=== PATIENT | male | born 1950 | race Caucasian/White ===

== ENCOUNTER → 2019-10-14 13:07 | Outpatient (BNVA) | payer OTHER, SELFPAY | PROVIDERS: Family Provider Family Medicine; PCP Family Medicine; Visit Provider Otolaryngology | DX: R13.10 Dysphagia, unspecified (principal); R49.0 Dysphonia; R05 Cough | CPT/HCPCS: 31575; 99214 ==

== ENCOUNTER → 2019-10-23 13:46 | Outpatient (BNVA) | payer OTHER, SELFPAY | PROVIDERS: Family Provider Family Medicine; PCP Family Medicine; Visit Provider Specialist | DX: G40.109 Localization-related (focal) (partial) symptomatic epilepsy and epileptic syndromes with simple partial seizures, not intractable, without status epilepticus (principal); G81.11 Spastic hemiplegia affecting right dominant side; Z87.891 Personal history of nicotine dependence | CPT/HCPCS: 95970; 99214 ==

== ENCOUNTER → 2019-10-25 19:15 | Outpatient (BNVA) | payer OTHER, SELFPAY | PROVIDERS: Family Provider Family Medicine; PCP Family Medicine; Visit Provider Nurse Practitioner | DX: S69.91XA Unspecified injury of right wrist, hand and finger(s), initial encounter (principal); W19.XXXA Unspecified fall, initial encounter | CPT/HCPCS: 73130 ==

== ENCOUNTER 2019-11-05 13:17 | Outpatient (CLI) | payer OTHER, SELFPAY ==
--- NOTE | 2019-11-05 13:30 | CT_ITS ---
WS: [id number] CT ANGIOGRAM CEREBRAL ARTERIES HISTORY: AVM TECHNIQUE: Pre and postcontrast imaging through the brain. CT angiogram is performed of the cerebral arteries. During arterial injection imaging is obtained from the skull vertex to the skull base in 1. 25 mm imaging. Coronal and sagittal reformats are submitted. Additional multi planar reformats of the cerebral arteries are submitted, MIP imaging also reviewed. All CT scans at [facility] use at least one of these dose optimization techniques: automated exposure control; mA and/or kV adju stment per patient size (includes targeted exams where dose is matched to clinical indication); or it erative reconstruction. CONTRAST: Omnipaque 350; 95 mL IV. DLP: 393.27 mGycm COMPARISON: MR angiogram 10/21/2015. Intracranial vertebral arteries: Normal with no significant atherosclerosis. Basilar artery: No significant stenosis or occlusion. No aneurysm. Intracranial Internal carotid arteries: Demonstrates no significant stenosis or plaque. Middle cerebral arteries: There is a large AV malformation centered in the LEFT frontoparietal region . This AVM has been previously described. There is a tangle of vessels beginning in the inferior LEFT middle cranial fossa and extending superiorly towards the vertex. There are large draining veins whi ch appear to drain towards the superior sagittal sinus. Additional drain veins along the straight sin us. Multiple arterial feeders from the middle and anterior cerebral circulation. Anterior cerebral arteries and ACOM: Patent with large feeding arteries extending towards the AVM. Posterior cerebral arteries and PCOM's: Normal. LEFT posterior communicating artery is dilated. Small caliber LEFT transverse sinus. Mastoid air cells: Normal. Paranasal sinuses: Normal. Calvarium: Normal. CT/CT angio head 61830 IMPRESSION: 1. Large LEFT frontoparietal AVM does not appear significantly changed since p rior examinations. No acute hemorrhage. 2. Numerous arterial feeders from the anterior middle cerebral arteries and pr obably also the posterior communicating artery on the LEFT.
[2019-11-05 13:57] LABS: Blood Urea Nitrogen 14 mg/dL (8-23); Glomerular Filtration Rate 83.9 mL/min (90-130)
--- NOTE | 2019-11-05 14:00 | CT_ITS ---
WS: [id number] CT HEAD NONCONTRAST HISTORY: AVM TECHNIQUE: Contiguous axial imaging performed through the brain in 2.5 mm imaging. Bone and soft tiss ue windows. All CT scans at [facility] use at least one of these dose optimization techniq ues: automated exposure control; mA and/or kV adjustment per patient size (includes targeted exams wh ere dose is matched to clinical indication); or iterative reconstruction. DLP: 992.04 mGycm COMPARISON: 10/22/2015 MRI and MRA No acute intracranial hemorrhage, midline shift or mass effect. There is a soft tissue mass with increased density and calcification centered in the LEFT frontoparie faraz region. This mass is been previously described and consistent with an AVM. No acute blood product s are identified. Size of the mass is similar to the prior study measuring 0.3 x 4.8 cm. No midline s hift or mass effect. Otherwise mild chronic microvascular ischemic disease. Ventricles: Normal size with no hydrocephalus. No inferior displacement of cerebellar tonsils. Paranasal sinuses: As visualized are clear. Mastoid air cells: Well pneumatized. Calvarium and scalp: Skull is intact with no soft tissue edema or swelling. CT/CT head wo con* [id number] IMPRESSION: 1. Variable density mass with calcifications in the LEFT frontoparietal region corresponds to previously described AVM. No acute blood products or hemorrhage . Similar in appearance as compared to the prior MRI from 2016. 2. Mild cerebral atrophy and chronic ischemic disease otherwise.
[2019-11-05] MEDS: iohexol 350 mg/mL 100 mL Btl IV (14:11)
== END 2019-11-05 13:18 | disposition home or self-care (01) ==
LOC: RADWPI 13:27
PROVIDERS: Radiology Diagnostic Radiology; Family Provider Family Medicine; PCP Family Medicine; Visit Provider Specialist
DX: Q27.30 Arteriovenous malformation, site unspecified (principal); G31.9 Degenerative disease of nervous system, unspecified
CPT/HCPCS: 70450; 70496; 82565; 84520; Q9967

== ENCOUNTER → 2020-04-06 14:37 | Outpatient (BNVA) | payer OTHER, SELFPAY | PROVIDERS: Family Provider Family Medicine; PCP Family Medicine; Visit Provider Specialist | DX: G40.109 Localization-related (focal) (partial) symptomatic epilepsy and epileptic syndromes with simple partial seizures, not intractable, without status epilepticus (principal); R53.1 Weakness | CPT/HCPCS: 99214 ==

== ENCOUNTER → 2020-05-06 12:48 | Outpatient (BNVA) | payer OTHER, SELFPAY | PROVIDERS: Family Provider Family Medicine; PCP Family Medicine; Visit Provider Specialist | DX: G40.109 Localization-related (focal) (partial) symptomatic epilepsy and epileptic syndromes with simple partial seizures, not intractable, without status epilepticus (principal); G56.02 Carpal tunnel syndrome, left upper limb; G62.9 Polyneuropathy, unspecified | CPT/HCPCS: 95913 ==

== ENCOUNTER → 2020-05-11 08:42 | Outpatient (BNVA) | payer OTHER, SELFPAY | PROVIDERS: Family Provider Family Medicine; PCP Family Medicine; Visit Provider Specialist | DX: G40.109 Localization-related (focal) (partial) symptomatic epilepsy and epileptic syndromes with simple partial seizures, not intractable, without status epilepticus (principal) | CPT/HCPCS: 95816 ==

== ENCOUNTER 2020-05-18 14:32 | Outpatient (CLI) | payer OTHER, SELFPAY ==
--- NOTE | 2020-05-18 14:37 | CT_ITS ---
WS: [id number] CT HEAD WITH AND WITHOUT CONTRAST HISTORY: RT SIDE WEAKNESS TECHNIQUE: Noncontrast 2.5 mm axial images obtained from the vertex to the skull base. Additional abrahan ging performed at 2.5 mm axial images status post IV contrast. Bone and soft tissue windows are revie wed. All CT scans at [facility] use at least one of these dose optimization techniques: a utomated exposure control; mA and/or kV adjustment per patient size (includes targeted exams where do se is matched to clinical indication); or iterative reconstruction. CONTRAST: Omnipaque 300; 95 mL IV. DLP: 1984.08 mGycm COMPARISON: 11/05/2019 Mixed density attenuation centered in the LEFT frontoparietal lobes is essentially unchanged. Tubular areas of increased density corresponding to an enlarged vascular malformation. There are numerous ca lcifications associated with the AVM. On the postcontrast images there is a large AVM corresponding t o the area of mixed density. Not significantly changed since prior studies. There are no acute blood products were interval hemorrhage. No midline shift or mass effect. No significant thrombus identified. Dural venous sinuses are normally enhancing. Paranasal sinuses as visualized: Clear. Mastoid air cells: Clear. Calvarium and scalp: Intact. CT/CT head wo/w con [id number] IMPRESSION: Large AVM centered in the LEFT frontoparietal lobes as seen on prior study. No acute hemorrhage or interval hemorrhage. Very similar to prior studies back to 2010.
[2020-05-18 15:00] LABS: Blood Urea Nitrogen 12 mg/dL (8-23); Glomerular Filtration Rate 95.8 mL/min (90-130)
[2020-05-18] MEDS: iohexol 300 mg/mL 100 mL Btl IV (15:13)
== END 2020-05-18 14:33 | disposition home or self-care (01) ==
LOC: RADWPI 14:36
PROVIDERS: Family Provider Family Medicine; PCP Family Medicine; Visit Provider Family Medicine
DX: M62.81 Muscle weakness (generalized) (principal); Q28.2 Arteriovenous malformation of cerebral vessels
CPT/HCPCS: 70470; 82565; 84520; Q9967

== ENCOUNTER → 2020-06-22 13:18 | Outpatient (BNVA) | payer OTHER, SELFPAY | PROVIDERS: Family Provider Family Medicine; PCP Family Medicine; Referring Provider Family Medicine; Visit Provider Orthopaedic Surgery | DX: M25.561 Pain in right knee (principal); M17.11 Unilateral primary osteoarthritis, right knee | CPT/HCPCS: 73560; 73565 ==

== ENCOUNTER → 2020-06-24 15:03 | Outpatient (BNVA) | payer OTHER, SELFPAY | PROVIDERS: Family Provider Family Medicine; PCP Family Medicine; Visit Provider Specialist | DX: G40.109 Localization-related (focal) (partial) symptomatic epilepsy and epileptic syndromes with simple partial seizures, not intractable, without status epilepticus (principal); G81.11 Spastic hemiplegia affecting right dominant side; G24.9 Dystonia, unspecified; Z87.891 Personal history of nicotine dependence | CPT/HCPCS: 99214 ==

== ENCOUNTER → 2020-07-06 12:17 | Outpatient (BNVA) | payer OTHER, SELFPAY | PROVIDERS: PCP Family Medicine; Visit Provider Orthopaedic Surgery | DX: Z11.59 Encounter for screening for other viral diseases (principal) | CPT/HCPCS: 87635 ==

== ENCOUNTER 2020-07-09 07:51 | Day surgery (SDC) | payer OTHER, SELFPAY ==
[2020-07-08 14:08] VITALS: BMI 29.5
[2020-07-09 08:20] VITALS: BP 152/92; PULSE 69; RESP 18; TEMP 36.2; O2SAT 97
[2020-07-09] MEDS: sodium chloride 0.9% 1,000 ML 30 ML IV (08:23)
--- NOTE | 2020-07-09 09:30 | P.ANESASSM_ITS ---
Pre-Anesthetic Assessment Pre-Anesthetic Assessment: Height/Weight: Height 1.8 m Weight 96.162 kg Temp Pulse Resp BP Pulse Ox 97.2 F L 69 18 152/92 97 07/09/20 08:20 07/09/20 08:20 07/09/20 08:20 07/09/20 08:20 07/09/20 08:20 Preop Diagnosis: Foreign body left hand Proposed Procedure: Operation Date: 07/09/20 10:40 Proposed Procedures p Foreign Body Removal Left Hand 55797 M79.643(Left) - Otto Tripp MD Familial anesthetic complications: None Was Beta Navarro taken within 24 h ours: N/A Last intake: Intake Last Liquid Date 07/08/20 Last Liquid Time 21:30 Last Solid Date 07/08/20 Last Solid Time 21:30 Social: Social History: No alcohol and No tobacco Comment: former smoker Exam: Pre-Anes Outpt Exam: alert, oriented x 3, clear to auscultation bilaterally and regular rate & rhythm Airway: Cervical ROM: WNL MP: 3 Dentition: False Pulmonary: Pulmonary: Cough Comments: superior laryngeal nerve paralysis GI: GI: GERD Neuropsych: Neuropsych: CVA and Seizure Comments: L large L AVM s/p stereotactic surgery in [facility], Repeats unchanged on CT head, R hemiparesis vagal nerve stimulator Anesthetic Plan: ASA status: 3 Other: Plan for ricardo block and/or MAC if surgeon ok - otherwise general Risk of > 500 ml blood loss (7ml/kg in children): No Meds/Allergies Current Medications: Current Medications Generic Name Dose Route Start Last Admin Trade Name Freq PRN Reason Stop Dose Admin Sodium Chloride 1,000 mls @ 30 ml s/hr 07/09/20 08:00 07/09/20 08:23 Sodium Chloride 0.9% IV 07/10/20 07:59 30 mls/hr .Q24H PIERRE Administration PFSH Anesthesia PFSH: Family History Other No pertinent family history Denies family history of Diabetes CAD (coronary artery disease) Hypertension Stroke Social History Smoking and tobacco status: former smoker Alcohol intake: current Alcohol type: wine Data Anesthesia Cardiac Studies: No Data to Display
--- NOTE | 2020-07-09 11:16 | W.PM.OPSUD ---
Surgery/Procedure H&P Update DATE OF PROCEDURE: July 09, 2020 DATE H&P PERFORMED: 06/22/20 PREOP DIAGNOSIS: Foreign body left hand PLANNED PROCEDURE: Operation Date: 07/09/20 10:40 Proposed Procedures p Foreign Body Removal Left Hand 53176 M79.643(Left) - Otto Tripp MD
[2020-07-09 12:13] VITALS: BP 161/98; PULSE 73; RESP 18; TEMP 36.1; O2SAT 98
--- NOTE | 2020-07-09 12:19 | PM.OP ---
Operative Report Date of procedure: July 09, 2020 Pre-op Diagnosis: Possible foreign body left hand, your finger left long finger Post-op diagnosis: same Post-op Findings: Left long finger trigger finger, dense scarring palmar fascia Procedure Done: Left long finger trigger finger release Pathology: none sent Surgeon: Otto Tripp Anesthesia: Nerve Block (Oswaldo block) Estimated blood loss (mL): 5 Tourniquet time (min): 20 Complications: None Findings: Patient had dense scar tissue in the palmar fascia,subcutaneous tissues and A1 emily of the left long finger but no foreign body was identified. Procedure: The patient was taken to the operating room and a [place] block was provided. A V shaped incision was made centered over the A1 emily in the area of swelling and maximal tenderness. Dissection was carried down under loupe magnification through the subcutaneous tissues. No foreign body purulence or other focal masses were identified. Dissection was brought down to the A1 emily which was a densely scarred. Utilizing the scalpel blade the central 5 mm were released. Scissors were then used to release approximately 7 mm proximally and 7 mm distally. Tendons were inspected and found to be free of pathology. Again no foreign body was identified. The wound was irrigated with saline. Skin edges were interrupted 3-0 Prolene. Sterile dressings were applied. Patient was taken to recovery room in stable condition.
[2020-07-09 12:35] VITALS: BP 155/82; PULSE 77; RESP 18; TEMP 36.1; O2SAT 99
[2020-07-09 12:41] VITALS: BP 155/82; PULSE 77; RESP 18; O2SAT 99
--- NOTE | 2020-07-09 13:15 | ANE.PACU2 ---
Inpatient post-anesthesia follow up: Airway intact: Yes Vital signs: Temperature 97.0 F Pulse Rate 77 Respiratory Rate 18 Blood Pressure 155/82 Pulse Oximetry 99 Oxygen Delivery Me thod Room Air Oxygen Flow Rate Fraction of Inspir ed Oxygen Hydration adequate: Yes Nausea and vomiting: No Pain level: 1 Mental status: Baseline
== END 2020-07-09 13:15 | disposition home or self-care (01) ==
PROVIDERS: PCP Family Medicine; Visit Provider Orthopaedic Surgery
PROC: (CPT 26055; principal; 2020-07-09 10:40)
DX: M65.332 Trigger finger, left middle finger (principal); K21.9 Gastro-esophageal reflux disease without esophagitis; Z86.73 Personal history of transient ischemic attack (TIA), and cerebral infarction without residual deficits; Z87.891 Personal history of nicotine dependence
CPT/HCPCS: 26055; 12345; J0690; J1580; J2704; J7030

== ENCOUNTER 2020-07-16 13:58 | Outpatient (RCR) | payer OTHER, SELFPAY | END 2020-07-25 23:59 | disposition home or self-care (01) | LOC: SOT 13:58 | PROVIDERS: PCP Family Medicine; Visit Provider Family Medicine | DX: G81.11 Spastic hemiplegia affecting right dominant side (principal) | CPT/HCPCS: 97167 ==

== ENCOUNTER 2020-07-18 18:06 | Emergency (ER) | payer OTHER, MEDICARE, SELFPAY ==
[2020-07-18 18:25] VITALS: BP 163/86; PULSE 80; RESP 18; TEMP 36.7; O2SAT 97; BMI 29.5
--- NOTE | 2020-07-18 19:01 | XRR_ITS ---
PROCEDURE INFORMATION: Exam: XR Left Shoulder Exam date and time: 07/18/2020 7:02 PM Age: 70 years old Clinical indication: Injury or trauma; Fall; Blunt trauma (contusions or hematomas); Shoulder; Left; Additional info: Left shoulder pain TECHNIQUE: Imaging protocol: XR Left shoulder. Views: 2 or more views. COMPARISON: No relevant prior studies available. FINDINGS: Bones/joints: Negative for acute bony abnormality. Soft tissues: Cardiac pacemaker left chest XR/XR shoulder LT min 2V* [id number] IMPRESSION: 1. No acute bone abnormality. 2. Cardiac pacemaker left chest
[2020-07-18] MEDS: HYDROcodone-acetaminophen 5-325 mg Tablet 1 TAB PO (19:19)
--- NOTE | 2020-07-18 19:33 | W.ED.EXTPRO ---
HPI - Extremity Problem General: Chief complaint: Extremity Injury, Upper Stated complaint: fall, injured left shoulder Time Seen by Provider: 07/18/20 18:46 History of Present Illness: HPI Narrative: 70-year-old male patient presents to the emergency department with complaints of left shoulder pain. He reports sustained a fall yesterday, tripped over his shoe and the dog. He reports skinned his right knee but is been able to walk, he reports pain is located in the left shoulder. He states is not able to raise his left arm due to pain. MD Complaint: extremity pain Onset (ago): day(s) (1) Pain Consistency: intermittent Location: left and upper extremity Severity scale (1-10): 5 Quality: aching and dull Radiation: none Relieving factors: immobilization and rest Exacerbating factors: range of motion Associated symptoms: Reports no associated symptoms; Deny chest pain, fever(s) or rash Review of Systems General: Reports: 10 or more systems reviewed and unremarkable except in HPI and below Const: Denies: fever(s), chills or diaphoresis Eyes: Denies: blurry vision or eye redness ENMT: Denies: throat pain, dental pain or disequilibrium Card: Denies: chest pain, palpitations or irregular heart rhythm Resp: Denies: dyspnea, productive cough, non-productive cough or wheezing GI: Denies: abdominal pain, nausea or vomiting : Denies: dysuria Musc: Reports: other (left shoulder pain); Denies: neck pain or back pain Skin/Breast: Denies: rash or pruritus Neuro: Denies: headache(s), weakness in extremities or behavioral changes Psych: Denies: anxiety or depression Goldy/Lymph: Denies: easy bruising PFSH ED PFSH: Family History Other No pertinent family history Denies family history of Diabetes CAD (coronary artery disease) Hypertension Stroke Social History Smoking and tobacco status: former smoker Alcohol intake: current Alcohol type: wine Physical Exam Const: COMMON NORMALS: no acute distress, patient oriented x3, healthy appearing and alert GENERAL APPEARANCE: cooperative, comfortable and well hydrated HENMT: COMMON NORMALS: normocephalic, Normal external nose present and moist oral mucous membranes HEAD & SCALP: normocephalic NOSE: Normal external nose present Eye: COMMON NORMALS: Equal, round and reactive pupils present and EOMs intact bilaterally GENERAL EYE: appearance normal, both eyes and all related structures PUPIL: Yes Equal, round and reactive pupils present Neck/C-Spine: COMMON NORMALS: full ROM and no lymphadenopathy GENERAL: Yes normal visual inspection and Yes trachea midline CERVICAL SPINE: Yes cervical ROM normal, No pain with cervical ROM, No Cervical spine tenderness, No Paracervical muscle tenderness, No Paracervical spasm and No Trapezius muscle tenderness Lymph: LYMPHATIC: no lymphadenopathy noted Chest: COMMONS NORMALS: normal inspection of the chest Resp: COMMON NORMALS: normal respiratory effort and clear to auscultation bilaterally EFFORT & INSPECTION: Yes able to speak in complete sentences AUSCULTATION: clear to auscultation bilaterally Cardio: COMMON NORMALS: regular rhythm, S1 normal heart sound present, S2 normal heart sound present and Peripheral pulses 2+ throughout RHYTHM: regular rhythm HEART SOUNDS: S1 normal heart sound present and S2 normal heart sound present PERIPHERAL PULSES: Peripheral pulses 2+ throughout GI: COMMON NORMALS: Soft to palpation and non-tender INSPECTION: Yes normal to inspection PALPATION: Yes Soft to palpation : COMMON NORMALS: Yes no CVA tenderness BLADDER/KIDNEY EXAM: Yes no CVA tenderness Back/Pelvis: COMMON NORMALS: no CVA tenderness and thoracic and lumbar spine normal to inspection THORACIC SPINE/UPPER BACK: Yes normal to inspection, Yes thoracic ROM normal, No thoracic spinal tenderness and No paraspinal muscle tenderness LUMBAR SPINE/LOWER BACK: Yes normal to inspection, Yes lumbar ROM normal, No lumbar spinal tenderness and No paraspinal muscle tenderness Extremity: COMMON NORMALS: normal to inspection and capillary refill normal GENERAL: Yes normal exam except as noted LEFT UPPER EXTREMITY: Yes shoulder joint (Pain to the AC joint, anterior and posterior. Not able to produce pain to the left humerus or clavicle. Limited range of motion secondary to pain. Left elbow with full range of motion.) Left shoulder joint: Yes neurovascular exam (Distally intact) Neuro: COMMON NORMALS: patient oriented x3 and no focal motor deficits SENSORIUM/ORIENTATION: Yes alert Psych: COMMON NORMALS: mental status grossly normal, Normal thought process present and cooperative ACTIVITY/MOTOR BEHAVIOR: Yes appropriate eye contact THOUGHT PROCESS: Normal thought process present Skin: COMMON NORMALS: no rashes or lesions noted and turgor normal GENERAL SKIN EXAM: no rashes or lesions noted and turgor normal Course Vital Signs: Vital signs: Vital Signs Temperature 98.0 F 07/18/20 18:25 Pulse Rate 80 07/18/20 18:25 Respiratory Rate 18 07/18/20 18:25 Blood Pressure 163/86 07/18/20 18:25 Pulse Oximetry 97 07/18/20 18:25 MDM - Extremity (Nontraumatic) Imaging Data^: Xray Ortho: Radiologist's impression: [address] [address] XRay Report Signed Patient: Zach Fleming Unit #: [id number] : 1950 Age/Sex: 70 / M ADM Date: 07/18/20 Loc: ER Room/Bed: Attending Dr: Ordering Provider/Ordering MD: Luciana Lara Date of Service: 07/18/20 Procedure(s): XR shoulder LT min 2V* [id number] Accession Number(s): [id number] Report Number: [id number] PROCEDURE INFORMATION: Exam: XR Left Shoulder Exam date and time: 07/18/2020 7:02 PM Age: 70 years old Clinical indication: Injury or trauma; Fall; Blunt trauma (contusions or hematomas); Shoulder; Left; Additional info: Left shoulder pain TECHNIQUE: Imaging protocol: XR Left shoulder. Views: 2 or more views. COMPARISON: No relevant prior studies available. FINDINGS: Bones/joints: Negative for acute bony abnormality. Soft tissues: Cardiac pacemaker left chest XR/XR shoulder LT min 2V* [id number] IMPRESSION: 1. No acute bone abnormality. 2. Cardiac pacemaker left chest Dictated By: Jasmeet Martinez Signed By: Jasmeet Martinez Signed Date/Time: 07/18/201925 DD/ 24 Discharge Plan Discharge Patient Disposition: Home Clinical Impression: Fall Qualifiers: Encounter type: initial encounter Qualified Code(s): W19.XXXA - Unspecified fall, initial encounter Contusion of left shoulder Qualifiers: Encounter type: initial encounter Qualified Code(s): S40.012A - Contusion of left shoulder, initial encounter Condition: Stable Prescriptions: No Action lamotrigine 150 mg tablet 150 mg PO BID Qty: 180 RF: 3 chromium picolinate 1,000 mcg tablet 500 mcg PO QDAY RF: 0 pantoprazole 40 mg tablet,delayed release (DR/EC) 40 mg PO QDAY RF: 0 iodine (kelp) Tablet 200 tab PO DAILY RF: 0 inositol 500 mg tablet 500 mg PO QDAY RF: 0 multivitamin [Daily Multi-Vitamin] Tablet 1 tab PO QAM RF: 0 magnesium citrate 100 mg tablet 100 mg PO QDAY RF: 0 pravastatin 80 mg tablet 80 mg PO .at bedtime RF: 0 glutathione 50 mg capsule 500 mg PO .am RF: 0 carbamazepine [Tegretol XR] 200 mg tablet extended release 12 hr 200 mg PO BID Qty: 180 RF: 3 ropinirole 4 mg tablet 4 mg PO QDAY Qty: 30 RF: 5 zinc 50 mg Tablet See Rx Instructions .ROUTE .COMPLEX RF: 0 fenugreek seed extract 500 mg Capsule 2,440 mg PO BID RF: 0 Vitamin D3 50 mcg PO DAILY RF: 0 [place] 5-325 mg tablet 1 tab PO Q4H PRN (Reason: pain) Qty: 20 RF: 0 Discharge Orders: Discharge Order (Routine); Ordered 07/18/20 Ordered By: Luciana Lara Referrals: Jorge Chisholm [Primary Care Provider] - Discharge Diet: Usual diet Discharge Activity: Limit activity as instructed Patient Instructions: Rotator Cuff Injury (ED), Contusion in Adults (ED), Fall Prevention (ED) Activity Restrictions/Additional Instructions: Wear arm sling for 24 hours, take left arm out of the sling every so often a complete small range of motion exercises such as small circles to prevent frozen shoulder Follow-up with your primary care physician next week for evaluation of the left shoulder, MRI may be warranted if rotator cuff injury is present Return to the emergency department if you develop swelling of the left arm, increased pain, shortness of breath or other concerning symptoms. Continue hydrocodone as needed for pain. Discharge Date/Time: 07/18/20 20:11 Coding Level of Care Code ED [employer] for Rosa M Lewis Exam Comprehensive
== END 2020-07-18 20:11 | disposition home or self-care (01) ==
PROVIDERS: Emergency Provider Nurse Practitioner Family; PCP Family Medicine
DX: S40.012A Contusion of left shoulder, initial encounter (principal); Z87.891 Personal history of nicotine dependence; W01.0XXA Fall on same level from slipping, tripping and stumbling without subsequent striking against object, initial encounter
CPT/HCPCS: 12345; 73030; 99281; 99283

== ENCOUNTER 2020-08-03 14:35 | Outpatient (CLI) | payer OTHER, SELFPAY ==
--- NOTE | 2020-08-03 14:42 | MR_ITS ---
WS: [id number] MRI LEFT SHOULDER NONCONTRAST TECHNIQUE: Sagittal T2, coronal T1, T2 and proton density imaging. Axial gradient PDE imaging. CLINICAL INFORMATION: SHOULDER PAIN COMPARISON: None. FINDINGS: Moderate degenerative arthritis at the AC joint with mild downsloping acromion. Slight subacromial sp urring. Acromial subdeltoid effusion. Soft tissue edema overlying the deltoid soft tissues laterally. Edema at the supraspinatus insertion with insertional tear. Irregularity at the humeral head disloca tion suspicious for a tiny avulsion fracture. This is difficult to further evaluate due to edema and could be better assessed with CT. Infraspinatus is intact. Normal teres minor and subscapularis. Normal biceps tendon in the bicipital groove. Glenoid labrum appears grossly normal. Normal intra-articular biceps tendon. MR/MR shoulder LT wo con* [id number] IMPRESSION: 1. Moderate degenerative arthritis AC joint with mild downsloping of the acrom ion. 2. Subacromial and subdeltoid effusion with edema overlying the lateral deltoi d likely due to recent trauma with soft tissue contusion. 3. Irregularity at the supraspinatus insertion with edema and intrasubstance t ear. No tendon retraction. 4. Suspected avulsion fracture at the supraspinatus insertion anterior lateral humeral head with bony irregularity in this area. Recommend further evaluation with CT for better anatomic detail 5. Rotator cuff is otherwise normal. 6. Normal biceps tendon in the bicipital groove. 7. No other significant findings.
== END 2020-08-03 14:36 | disposition home or self-care (01) ==
LOC: RADWPI 14:41
PROVIDERS: PCP Family Medicine; Visit Provider Family Medicine
DX: M25.512 Pain in left shoulder (principal); M19.012 Primary osteoarthritis, left shoulder; M25.412 Effusion, left shoulder; G40.109 Localization-related (focal) (partial) symptomatic epilepsy and epileptic syndromes with simple partial seizures, not intractable, without status epilepticus; Z87.891 Personal history of nicotine dependence
CPT/HCPCS: 73221; 99213

== ENCOUNTER 2020-10-23 10:43 | Outpatient (CLI) | payer OTHER, SELFPAY ==
--- NOTE | 2020-10-23 | CT_ITS ---
WS: [id number] CT LEFT SHOULDER, NONCONTRAST. HISTORY: DEGENERATIVE ARTHRITIS AC JOINT Technique: All CT scans at [facility] use at least one of these dose optimization techniq ues: automated exposure control; mA and/or kV adjustment per patient size (includes targeted exams wh ere dose is matched to clinical indication); or iterative reconstruction. DLP: 772.98 mGycm COMPARISON: 07/18/2020 Mild narrowing and subchondral cystic changes and hypertrophic osteophytes at the AC joint. There is mild encroachment by osteophytes upon the supraspinatus muscle and tendon. There is a small osteophyt e at the bicipital groove which may be interfering with the biceps tendon and subscapularis tendon. T here are additional foci of increased density along the rotator cuff superior to the humeral head whi ch may be calcific tendinitis or small loose body or fragment. Mild narrowing of the glenohumeral anita nt. There is also slight atrophy of the supraspinatus muscle. CT/CT shoulder LT wo con* [id number] IMPRESSION: 1. Mild degenerative changes at the AC joint. Osteophytes encroach upon the rodgers praspinatus muscle and tendon. 2. Calcific or osseous densities within the rotator cuff over the superior hum eral head may be tiny osseous densities or calcific tendinitis. 3. There is an osteophyte at the bicipital groove which is probably encroachin g upon the biceps tendon and subscapularis tendon.
== END 2020-10-23 10:44 | disposition home or self-care (01) ==
LOC: RADWPI 10:45
PROVIDERS: PCP Family Medicine; Visit Provider Family Medicine
DX: M19.012 Primary osteoarthritis, left shoulder (principal); M25.712 Osteophyte, left shoulder
CPT/HCPCS: 73200

== ENCOUNTER → 2020-11-18 13:43 | Outpatient (BNVA) | payer OTHER, SELFPAY | PROVIDERS: PCP Family Medicine; Visit Provider Specialist | DX: G40.109 Localization-related (focal) (partial) symptomatic epilepsy and epileptic syndromes with simple partial seizures, not intractable, without status epilepticus (principal); Z96.89 Presence of other specified functional implants; Z87.891 Personal history of nicotine dependence | CPT/HCPCS: 95970; 99214 ==

== ENCOUNTER 2021-01-08 12:48 | Outpatient (CLI) | payer OTHER, MEDICARE, SELFPAY ==
--- NOTE | 2021-01-08 | FL_ITS ---
WS: [id number] MODIFIED BARIUM SWALLOW HISTORY: Other dysphagia FLUOROSCOPY TIME: 1.1 minutes. Modified barium swallow was performed by the speech pathologist. Fluoroscopy was provided with the pa tient in a lateral projection. Multiple food consistencies were provided. Patient swallowed the barium mixtures without difficulty. There is premature spilling to the level of the vallecula. No aspiration. Minimal episodes of laryngeal penetration noted with thin liquids. Lakeisha coles swallowed the barium tablet without difficulty. FL/FL barium swallow modifd [id number] IMPRESSION: 1. Mild premature spilling of the barium into the vallecula. 2. No aspiration. 3. A few minimal episodes of laryngeal penetration. Please see speech therapist report also for recommendations.
== END 2021-01-08 12:49 | disposition home or self-care (01) ==
PROVIDERS: PCP Family Medicine; Visit Provider Internal Medicine Critical Care Medicine
DX: R13.19 Other dysphagia (principal)
CPT/HCPCS: 74230

== ENCOUNTER → 2021-01-22 15:05 | Outpatient (BNVA) | payer OTHER, MEDICARE, SELFPAY | PROVIDERS: PCP Family Medicine; Visit Provider Surgery | DX: Z01.812 Encounter for preprocedural laboratory examination (principal); Z20.822 Contact with and (suspected) exposure to COVID-19 | CPT/HCPCS: 87635 ==

== ENCOUNTER 2021-01-23 17:37 | Emergency (ER) | payer OTHER, MEDICARE, SELFPAY ==
[2021-01-23 17:40] VITALS: BP 154/79; PULSE 65; RESP 18; TEMP 36.9; O2SAT 96; BMI 30.2
--- NOTE | 2021-01-23 17:58 | ED_ITS ---
Documented by User: Rob Edouard DO 01/29/21 08:30 HPI - Extremity Problem General: Chief complaint: Extremity Injury, Lower Stated complaint: RIGHT KNEE PAIN Time Seen by Provider: 01/23/21 17:57 History of Present Illness: HPI Narrative: 70-year-old male presents to the emergency room with a complaint of right knee pain. He went out to do some chores around his forearms this morning when he went back into the house he sat down when he tried to stand up he felt like his knee could not extend locked out he refers most of the pain to the lateral aspect of the knee he states he has had this before in the past and eventually it will feel like it pops and that he can straighten it out and use it again without any difficulty. He is never had any surgery that knee and there is no recent trauma. MD Complaint: joint pain Onset (ago): hour(s) Pain Consistency: constant Location: left and knee Quality: aching Radiation: none Relieving factors: immobilization Exacerbating factors: range of motion, weight bearing and walking Associated symptoms: Deny arthralgias, chest pain, fever(s), myalgias, rash or short of breath Review of Systems Const: Denies: fever(s) ENMT: Denies: throat pain, ear or mastoid pain, nasal discharge or nasal congestion Card: Denies: chest pain Resp: Denies: dyspnea, productive cough or non-productive cough GI: Denies: abdominal pain, nausea, vomiting, hematemesis, coffee ground emesis, diarrhea, constipation, bloating, hematochezia or melena : Denies: flank pain, dysuria, urinary frequency or urinary urgency Skin/Breast: Denies: rash PFSH ED PFSH: Medical History (Updated 01/27/21 @ 10:04 by Paulino Francis MD) Arteriovenous malformation, brain Chronic back pain greater than 3 months duration Cough syncope Dysarthria Esophageal varices Restless legs Seizures Unsteady gait Family History Other No pertinent family history Denies family history of Diabetes CAD (coronary artery disease) Hypertension Stroke Social History Smoking and tobacco status: former smoker Quit status (tobacco): has quit using tobacco Year quit tobacco: 1996 Former quit date comment: 0.25 PPD x 2 Years Second hand smoke exposure: No Smoking risk assessment/counseling performed?: Yes Alcohol intake: current Alcohol intake frequency: few times a month Alcohol type: wine Counseling given: No Caregiver/support person: Yes Lives independently: Yes Household members: spouse Marital status: service: Yes Current occupational status: disabled Pets and animals: Yes History of recent travel: No Current gender identity: Male Physical Exam Const: COMMON NORMALS: no acute distress GENERAL APPEARANCE: cooperative and comfortable ORIENTATION/CONSCIOUSNESS: Yes awake, Yes oriented to person, Yes oriented to place and Yes oriented to time HENMT: COMMON NORMALS: normocephalic, atraumatic and hearing grossly normal bilaterally HEAD & SCALP: normocephalic and atraumatic Neck/C-Spine: COMMON NORMALS: no JVD Resp: COMMON NORMALS: normal respiratory effort, No retractions, No use of accessory muscles and clear to auscultation bilaterally AUSCULTATION: clear to auscultation bilaterally Cardio: COMMON NORMALS: no JVD, regular rate, regular rhythm and No murmurs present (Cardio) RATE: regular rate RHYTHM: regular rhythm GI: COMMON NORMALS: Soft to palpation and No hepatosplenomegaly present AUSCULTATION: Yes normoactive bowel sounds PALPATION: Yes Soft to palpation, No Tenderness to palpation present (GI), No Guarding due to palpation present (GI) and Yes No hepatosplenomegaly present Extremity: COMMON NORMALS: normal to inspection, capillary refill normal, no clubbing, cyanosis or edema, no calf tenderness and no pedal edema NARRATIVE EXTREMITY EXAM: Swelling and discomfort of the right knee Neuro: SENSORIUM/ORIENTATION: Yes oriented to person, Yes oriented to place and Yes oriented to time Skin: COMMON NORMALS: no rashes or lesions noted GENERAL SKIN EXAM: no rashes or lesions noted Course Vital Signs: Vital signs: Vital Signs Temperature 98.4 F 01/23/21 17:40 Pulse Rate 65 01/23/21 17:40 Respiratory Rate 18 01/23/21 17:40 Blood Pressure 154/79 01/23/21 17:40 Pulse Oximetry 96 01/23/21 17:40 MDM - Extremity (Nontraumatic) MDM Narrative: Medical decision making narrative: Turned over to Dr. Kirkland at change of shift see his notes for final diagnosis and disposition Discharge Plan Discharge Patient Disposition: Home Clinical Impression: Acute internal derangement of knee Qualifiers: Laterality: right Qualified Code(s): M23.91 - Unspecified internal derangement of right knee Condition: Stable Prescriptions: New methylprednisolone [Medrol (Heraclio)] 4 mg tablets,dose pack See Rx Instructions .ROUTE .COMPLEX Qty: 21 RF: 0 No Action lamotrigine 150 mg tablet 150 mg PO BID Qty: 180 RF: 3 budesonide-formoterol [Symbicort] 80-4.5 mcg/actuation HFA aerosol inhaler 2 puff inhalation BID RF: 0 chromium picolinate 1,000 mcg tablet 500 mcg PO QDAY RF: 0 pantoprazole 40 mg tablet,delayed release (DR/EC) 40 mg PO QDAY RF: 0 inositol 500 mg tablet 500 mg PO QDAY RF: 0 multivitamin [Daily Multi-Vitamin] Tablet 1 tab PO QAM RF: 0 pravastatin 80 mg tablet 80 mg PO .at bedtime RF: 0 glutathione 50 mg capsule 500 mg PO .am RF: 0 carbamazepine [Tegretol XR] 200 mg tablet extended release 12 hr 200 mg PO BID Qty: 180 RF: 1 trihexyphenidyl 2 mg tablet 2 mg PO BID Qty: 60 RF: 4 ropinirole 4 mg tablet 4 mg PO QDAY Qty: 30 RF: 3 zinc 50 mg Tablet See Rx Instructions .ROUTE .COMPLEX RF: 0 Vitamin D3 50 mcg PO BID RF: 0 codeine-guaifenesin 10-100 mg/5 mL liquid 5 ml PO Q6H PRN (Reason: Cough) RF: 0 Kelp (iodine) 150 mcg Tablet 200 mcg PO DAILY RF: 0 magnesium citrate 100 mg Tablet 420 mg PO DAILY RF: 0 coenzyme Q10 [Co Q-10] 100 mg Capsule 120 mg PO DAILY RF: 0 red yeast rice 600 mg Tablet 600 mg PO BID RF: 0 krill oil 500 mg Capsule 200 mg PO DAILY RF: 0 Discharge Orders: Discharge ED (Routine); Ordered 01/23/21 Ordered By: Jenaro Kirkland Referrals: Juju Sam MD [Primary Care Provider] - Otto Tripp MD [Physician] - 4-7 days Patient Instructions: Knee Effusion (ED), Opioid Safety Activity Restrictions/Additional Instructions: Medications as directed. Use your knee immobilizer for weightbearing for the next few days. A hinged sports knee brace may be more helpful. Crutches as eveline mittal. Call the orthopedic clinic on Monday for a follow-up appointment. Coding Level of Care Code ED Directional Drill Operator for Chg Fwd Exam Comprehensive Documented by User: Jenaro Kirkland DO 01/23/21 20:10 HPI - Extremity Problem General: Chief complaint: Extremity Injury, Lower Stated complaint: RIGHT KNEE PAIN Time Seen by Provider: 01/23/21 17:57 PFSH ED PFSH: Medical History (Updated 01/27/21 @ 10:04 by Paulino Francis MD) Arteriovenous malformation, brain Chronic back pain greater than 3 months duration Cough syncope Dysarthria Esophageal varices Restless legs Seizures Unsteady gait Family History Other No pertinent family history Denies family history of Diabetes CAD (coronary artery disease) Hypertension Stroke Social History Smoking and tobacco status: former smoker Quit status (tobacco): has quit using tobacco Year quit tobacco: 1996 Former quit date comment: 0.25 PPD x 2 Years Second hand smoke exposure: No Smoking risk assessment/counseling performed?: Yes Alcohol intake: current Alcohol intake frequency: few times a month Alcohol type: wine Counseling given: No Caregiver/support person: Yes Lives independently: Yes Household members: spouse Marital status: service: Yes Current occupational status: disabled Pets and animals: Yes History of recent travel: No Current gender identity: Male Course Vital Signs: Vital signs: Vital Signs Temperature 98.4 F 01/23/21 17:40 Pulse Rate 65 01/23/21 17:40 Respiratory Rate 18 01/23/21 17:40 Blood Pressure 154/79 01/23/21 17:40 Pulse Oximetry 96 01/23/21 17:40 MDM - Extremity (Nontraumatic) MDM Narrative: Medical decision making narrative: 70-year-old gentleman checked out to me at shift change by Dr. Edouard. He had a locked knee. He can straighten and bend now at least to some degree. He does have a knee effusion. CT shows no fracture. There are some calcium in his menisci be prescribed a Medrol Dosepak for the swelling, hydrocodone as needed for pain. He is going in a knee immobilizer for up to 5 days. Crutches or walker to help with weightbearing. Outpatient orthopedic follow-up Discharge Plan Discharge Patient Disposition: Home Clinical Impression: Acute internal derangement of knee Qualifiers: Laterality: right Qualified Code(s): M23.91 - Unspecified internal derangement of right knee Condition: Stable Prescriptions: New methylprednisolone [Medrol (Heraclio)] 4 mg tablets,dose pack See Rx Instructions .ROUTE .COMPLEX Qty: 21 RF: 0 No Action lamotrigine 150 mg tablet 150 mg PO BID Qty: 180 RF: 3 budesonide-formoterol [Symbicort] 80-4.5 mcg/actuation HFA aerosol inhaler 2 puff inhalation BID RF: 0 chromium picolinate 1,000 mcg tablet 500 mcg PO QDAY RF: 0 pantoprazole 40 mg tablet,delayed release (DR/EC) 40 mg PO QDAY RF: 0 inositol 500 mg tablet 500 mg PO QDAY RF: 0 multivitamin [Daily Multi-Vitamin] Tablet 1 tab PO QAM RF: 0 pravastatin 80 mg tablet 80 mg PO .at bedtime RF: 0 glutathione 50 mg capsule 500 mg PO .am RF: 0 carbamazepine [Tegretol XR] 200 mg tablet extended release 12 hr 200 mg PO BID Qty: 180 RF: 1 trihexyphenidyl 2 mg tablet 2 mg PO BID Qty: 60 RF: 4 ropinirole 4 mg tablet 4 mg PO QDAY Qty: 30 RF: 3 zinc 50 mg Tablet See Rx Instructions .ROUTE .COMPLEX RF: 0 Vitamin D3 50 mcg PO BID RF: 0 codeine-guaifenesin 10-100 mg/5 mL liquid 5 ml PO Q6H PRN (Reason: Cough) RF: 0 Kelp (iodine) 150 mcg Tablet 200 mcg PO DAILY RF: 0 magnesium citrate 100 mg Tablet 420 mg PO DAILY RF: 0 coenzyme Q10 [Co Q-10] 100 mg Capsule 120 mg PO DAILY RF: 0 red yeast rice 600 mg Tablet 600 mg PO BID RF: 0 krill oil 500 mg Capsule 200 mg PO DAILY RF: 0 Discharge Orders: Discharge ED (Routine); Ordered 01/23/21 Ordered By: Jenaro Kirkland Referrals: Juju Sam MD [Primary Care Provider] - Otto Tripp MD [Physician] - 4-7 days Patient Instructions: Knee Effusion (ED), Opioid Safety Activity Restrictions/Additional Instructions: Medications as directed. Use your knee immobilizer for weightbearing for the next few days. A hinged sports knee brace may be more helpful. Crutches as needed. Call the orthopedic clinic on Monday for a follow-up appointment. Coding Level of Care Code ED Directional Drill Operator for Chg Fwd Exam Comprehensive
--- NOTE | 2021-01-23 18:07 | CTR_ITS ---
PROCEDURE INFORMATION: Exam: CT Right Lower Extremity Without Contrast, Knee Exam date and time: 01/23/2021 6:28 PM Age: 70 years old Clinical indication: Right; Patient HX: C/O R knee pain w/o injury; Additional info: Pain, non-weight bearing TECHNIQUE: Imaging protocol: CT of the Right lower extremity without contrast was performed. Exam focused on the knee. Radiation optimization: All CT scans at this facility use at least one of these dose optimization techniques: automated exposure control; mA and/or kV adjustment per patient size (includes targeted exams where dose is matched to clinical indication); or iterative reconstruction. COMPARISON: CR XR knees AP WB w RT lmt ORTH 06/22/2020 1:24 PM RADIATION DOSE METRICS: Total DLP (mGy-cm): 179.34 FINDINGS: Bones/joints: Small to moderate knee joint effusion. There are calcifications within posterior and anterior cruciate ligament consistent with chronic injury. There are bilateral meniscal calcifications. Soft tissues: There is edema in the prepatellar soft tissues. CT/CT knee RT wo con* [id number] IMPRESSION: 1. Small to moderate knee joint effusion. 2. There are calcifications within posterior and anterior cruciate ligament consistent with chronic injury. 3. There are bilateral meniscal calcifications. 4. Prepatellar soft tissue edema. Radiation Dose CTDIVOL = (mGy): DLP = 179.34 (mGy-cm)
== END 2021-01-23 20:19 | disposition home or self-care (01) ==
PROVIDERS: Emergency Provider Emergency Medicine; PCP Family Medicine
DX: M23.91 Unspecified internal derangement of right knee (principal); Z87.891 Personal history of nicotine dependence
CPT/HCPCS: 29530; 73700; 99283; E0114

== ENCOUNTER 2021-01-27 08:12 | Day surgery (SDC) | payer OTHER, MEDICARE, SELFPAY ==
[2021-01-25 15:31] VITALS: BMI 29.8
--- NOTE | 2021-01-27 08:35 | ANES.PREANE2 ---
Pre-Anesthetic Assessment Pre-Anesthetic Assessment: Height/Weight: Height 1.8 m Weight 97.069 kg Preop Diagnosis: Chronic cough And aspiration Proposed Procedure: Operation Date: 01/27/21 09:30 Proposed Procedures p EGD 60372 R13.10(Not Applicable) - Paulino Francis MD Was Beta Navarro taken within 24 hours: N/A Was Clonidine taken within 24 hours: N/A Social: Social History: No alcohol and No tobacco Exam: Pre-Anes Outpt Exam: alert, oriented x 3, clear to auscultation bilaterally and regular rate & rhythm Airway: Submandibular: WNL Cervical ROM: WNL MP: 2 Dentition: False Pulmonary: Pulmonary: Cough GI: GI: GERD Neuropsych: Neuropsych: Seizure (Vagal nerve stim.) Anesthetic Plan: ASA status: 3 Anesthesia: MAC Risk of > 500 ml blood loss (7ml/kg in children): No PFSH Anesthesia PFSH: Medical History Arteriovenous malformation, brain Chronic back pain greater than 3 months duration Cough syncope Dysarthria Restless legs Seizures Unsteady gait Family History Other No pertinent family history Denies family history of Diabetes CAD (coronary artery disease) Hypertension Stroke Social History Smoking and tobacco status: former smoker Quit status (tobacco): has quit using tobacco Year quit tobacco: 1996 Former quit date comment: 0.25 PPD x 2 Years Second hand smoke exposure: No Smoking risk assessment/counseling performed?: Yes Alcohol intake: current Alcohol intake frequency: few times a month Alcohol type: wine Counseling given: No Caregiver/support person: Yes Lives independently: Yes Household members: spouse Marital status: service: Yes Current occupational status: disabled Pets and animals: Yes History of recent travel: No Current gender identity: Male Data Anesthesia Cardiac Studies: No Data to Display
--- NOTE | 2021-01-27 09:05 | W.PM.OPSUD ---
Surgery/Procedure H&P Update DATE OF PROCEDURE: January 27, 2021 DATE H&P PERFORMED: 12/30/20 H&P UPDATE INFORMATION: I have reviewed H&P completed within last 30 days, I have examined patient prior to procedure and Changes to prior documentation as noted here CHANGES TO PREVIOUS DOCUMENTATION: MBS; 1. Mild premature spilling of the barium into the vallecula. 2. No aspiration. 3. A few minimal episodes of laryngeal penetration. Please see speech therapist report also for recommendations. PREOP DIAGNOSIS: Chronic cough And aspiration PRIMARY INDICATION FOR PROCEDURE: The same PLANNED PROCEDURE: Operation Date: 01/27/21 09:30 Proposed Procedures p EGD 75757 R13.10(Not Applicable) - Paulino Francis MD
[2021-01-27 09:08] VITALS: BP 153/70; PULSE 63; RESP 16; TEMP 36.5; O2SAT 99
[2021-01-27] MEDS: sodium chloride 0.9% 1,000 ML 30 ML IV (09:27)
[2021-01-27 10:08] VITALS: BP 163/79; PULSE 72; RESP 18; TEMP 36.1; O2SAT 99
[2021-01-27 10:17] VITALS: BP 148/75; PULSE 59; RESP 18; O2SAT 100
--- NOTE | 2021-01-27 15:03 | ANE.PACU2 ---
Inpatient post-anesthesia follow up: Airway intact: Yes Vital signs: Temperature 97 F Pulse Rate 59 Respiratory Rate 18 Blood Pressure 148/75 Pulse Oximetry 100 Oxygen Delivery Me thod Room Air Oxygen Flow Rate Fraction of Inspir ed Oxygen Hydration adequate: Yes Nausea and vomiting: No Pain level: 1 Mental status: Baseline
[2021-01-29 14:38] LABS: H. Pylori / CLO Test Negative
== END 2021-01-27 10:25 | disposition home or self-care (01) ==
PROVIDERS: PCP Family Medicine; Visit Provider Surgery
PROC: 0DJ08ZZ Inspection of Upper Intestinal Tract, Via Natural or Artificial Opening Endoscopic (ICD-10-PCS; CPT 43235; principal; 2021-01-27 09:30)
DX: R05 Cough (principal); R13.10 Dysphagia, unspecified; Z87.891 Personal history of nicotine dependence; K21.9 Gastro-esophageal reflux disease without esophagitis; I83.90 Asymptomatic varicose veins of unspecified lower extremity; K29.70 Gastritis, unspecified, without bleeding
CPT/HCPCS: 43239; 87077; 96360; J2704; J7030

== ENCOUNTER 2021-02-11 19:33 | Emergency (ER) | payer OTHER, MEDICARE, SELFPAY ==
--- NOTE | 2021-02-11 19:45 | XRR_ITS ---
PROCEDURE INFORMATION: Exam: XR Left Ankle Exam date and time: 02/11/2021 7:47 PM Age: 70 years old Clinical indication: Prior surgery; Patient HX: Pain and swelling in left ankle. PT injured his right leg and has been using a walker putting more pressure on left ankle. ; Additional info: Injury TECHNIQUE: Imaging protocol: XR Left ankle. Views: 3 or more views. COMPARISON: No relevant prior studies available. FINDINGS: Bones/joints: Hardware in the distal left fibula transverses an old healed fracture. Curvilinear bandlike regions of sclerosis are present within the distal metaphysis of the tibia. Severe degenerative changes of the left ankle joint. No acute fracture identified. Soft tissues: Mild soft tissue swelling of the ankle. XR/XR ankle LT min 3V* [id number] IMPRESSION: 1. No acute finding. 2. Bandlike regions of sclerosis in the distal left tibia could relate to prior infection or bone infarction.
[2021-02-11 20:21] VITALS: BP 161/81; PULSE 90; RESP 16; TEMP 37.1; O2SAT 97; BMI 30.2
[2021-02-11 20:53] VITALS: BP 158/80; PULSE 92; RESP 17; O2SAT 96
[2021-02-11 20:54] VITALS: PULSE 92
--- NOTE | 2021-02-11 21:05 | USR_ITS ---
PROCEDURE INFORMATION: Exam: US Duplex Left Lower Extremity Veins, Limited Exam date and time: 02/11/2021 9:07 PM Age: 70 years old Clinical indication: Pain; Leg, lower; Left; Prior surgery; Surgery date: 6+ months; Additional info: Pain and swelling in lower leg TECHNIQUE: Imaging protocol: Real-time Duplex ultrasound of the Left Lower Extremity with 2-D hyde scale, color Doppler flow and spectral waveform analysis with image documentation. Limited exam focused on the left lower extremity veins. COMPARISON: No relevant prior studies available. FINDINGS: Left deep veins: Unremarkable. The common femoral, femoral, proximal profunda femoral and popliteal veins are patent without thrombus. Normal Doppler waveforms. Normal compressibility and/or augmentation response. Left superficial veins: Unremarkable. Saphenofemoral junction is patent without thrombus. Soft tissues: Unremarkable. US/CV venous duplex [facility] [id number] IMPRESSION: No evidence of deep vein thrombosis.
--- NOTE | 2021-02-11 21:05 | CTR_ITS ---
PROCEDURE INFORMATION: Exam: CT Right Lower Extremity With Contrast, Knee Exam date and time: 02/11/2021 9:52 PM Age: 70 years old Clinical indication: Right; Patient HX: RT knee pain. Non weight bearing. History of meniscus tear. ; Additional info: Right knee pain. TECHNIQUE: Imaging protocol: CT of the Right lower extremity with intravenous contrast was performed. Exam focused on the knee. Radiation optimization: All CT scans at this facility use at least one of these dose optimization techniques: automated exposure control; mA and/or kV adjustment per patient size (includes targeted exams where dose is matched to clinical indication); or iterative reconstruction. Contrast material: OMNI 300; Contrast volume: 95 ml; Contrast route: INTRAVENOUS (IV); COMPARISON: CT knee RT wo con* [id number] 01/23/2021 6:46 PM RADIATION DOSE METRICS: Total DLP (mGy-cm): 277.16 FINDINGS: Bones/joints: Stable right knee effusion with mild synovial enhancement. No gas bubbles visualized. The bones are intact and in normal alignment. Mild degenerative changes all 3 knee compartments. No fracture identified or bone destruction. Degenerative calcifications in the bilateral menisci. Benign bone island in the distal femur. Calcification of the posterior cruciate ligament. Soft tissues: Mild subcutaneous soft tissue edema in the distal lateral right thigh and pre patellar region. No organized fluid collection. CT/CT knee RT w con [id number] IMPRESSION: 1. Stable right knee effusion. Nonspecific synovial enhancement may be inflammatory or infect. If there is clinical concern for infection, fluid sampling would be suggested. 2. Mild subcutaneous soft tissue edema in the lateral thigh and prepatellar region. 3. Mild degenerative changes with degenerative calcification of the menisci. Radiation Dose CTDIVOL = (mGy): DLP = 277.16 (mGy-cm)
--- NOTE | 2021-02-11 21:06 | ED_ITS ---
HPI - Extremity Problem General: Chief complaint: Extremity Problem,Nontraumatic Stated complaint: LEFT ANKLE INJURY Time Seen by Provider: 02/11/21 20:42 History of Present Illness: HPI Narrative: Patient is a 70-year-old male comes to the ED with left ankle swelling and pain in right knee pain.Patient was seen here in the ED on January 23 diagnosed with a torn right meniscus. Patient currently is seen Dr. Tripp and is in the process of getting a CT of the right knee with contrast [facility]. Due to patient not being able to walk on right knee he was using a walker and putting all his weight on his left leg. He has a prior history of an ankle fracture and he still has a plate with screws in left ankle. He says after a day of using his walker and putting all his weight on his left leg is left ankle started to swell and was painful and red. He denies any chest pain, shortness of breath or hemoptysis. Patient has pain medications that he takes at home and took a dose of his pain medication couple hours prior to arrival. He denies any acute trauma or injury to left ankle. Patient is tired of waiting to get approval for his CT of his right knee and his symptoms are not improving I would like to get a CT of his knee today in the ED. Associated symptoms: Deny chest pain, fever(s) or rash Review of Systems Const: Denies: fever(s), chills or fatigue Eyes: Denies: change in vision or eye discomfort ENMT: Denies: throat pain, odynophagia, nasal discharge or nasal congestion Card: Denies: chest pain, palpitations, edema, swelling of feet/ankles, dyspnea on exertion or orthopnea Resp: Denies: dyspnea, productive cough or non-productive cough GI: Denies: abdominal pain, nausea, vomiting, diarrhea, constipation or hematochezia : Denies: flank pain, difficulty urinating, dysuria or hematuria Musc: Reports: extremity pain (right knee pain and left ankle/lower leg swelling and pain); Denies: neck pain, back pain or extremity swelling Skin/Breast: Denies: rash or new lesions Neuro: Denies: headache(s), numbness in extremities or weakness in extremities [facility] ED PFSH: Medical History Arteriovenous malformation, brain Chronic back pain greater than 3 months duration Cough syncope Dysarthria Esophageal varices Restless legs Seizures Unsteady gait Family History Other No pertinent family history Denies family history of Diabetes CAD (coronary artery disease) Hypertension Stroke Social History Smoking and tobacco status: former smoker Quit status (tobacco): has quit using tobacco Year quit tobacco: 1996 Former quit date comment: 0.25 PPD x 2 Years Second hand smoke exposure: No Smoking risk assessment/counseling performed?: Yes Alcohol intake: current Alcohol intake frequency: few times a month Alcohol type: wine Counseling given: No Caregiver/support person: Yes Lives independently: Yes Household members: spouse Marital status: service: Yes Current occupational status: disabled Pets and animals: Yes History of recent travel: No Current gender identity: Male Physical Exam Const: COMMON NORMALS: patient oriented x3 and alert GENERAL APPEARANCE: cooperative and comfortable HENMT: COMMON NORMALS: normocephalic HEAD & SCALP: normocephalic MOUTH: Normal oral and palatal mucosa present THROAT: posterior oropharynx normal and uvula midline Neck/C-Spine: COMMON NORMALS: supple GENERAL: Yes normal visual inspection Resp: COMMON NORMALS: normal respiratory effort, No retractions, No use of accessory muscles and clear to auscultation bilaterally AUSCULTATION: clear to auscultation bilaterally Cardio: COMMON NORMALS: regular rate, regular rhythm, S1 normal heart sound present, S2 normal heart sound present, No gallops present (Cardio), No clicks present (Cardio), No murmurs present (Cardio) and Peripheral pulses 2+ throughout RATE: regular rate RHYTHM: regular rhythm HEART SOUNDS: S1 normal heart sound present and S2 normal heart sound present PERIPHERAL PULSES: Peripheral pulses 2+ throughout GI: COMMON NORMALS: Normal to inspection, nondistended, normoactive bowel sounds present, Soft to palpation, non-tender and no masses PALPATION: Yes Soft to palpation : COMMON NORMALS: Yes no CVA tenderness BLADDER/KIDNEY EXAM: Yes no CVA tenderness Back/Pelvis: COMMON NORMALS: no CVA tenderness Extremity: NARRATIVE EXTREMITY EXAM: Left lower leg-erythema, warmth and tenderness to palpation of the skin over the medial aspect of ankle. He has some swelling in the left ankle as well. No open wounds or sores seen. He has full range of motion in ankle. Neurovascular intact distally. Findings on left medial ankle suggestive of possible cellulitis. GENERAL: Yes normal exam except as noted RIGHT LOWER EXTREMITY: Yes knee joint Right knee: Yes inspection (Right knee has some edema, but no deformity seen.), Yes palpation (Tenderness to palpation over the medial and lateral aspect of knee.), Yes ROM (Limited due to pain) and Yes neurovascular exam (Intact) Neuro: COMMON NORMALS: patient oriented x3 SENSORIUM/ORIENTATION: Yes alert Skin: NARRATIVE SKIN EXAM: Medial aspect of the left ankle patient has some warmth, erythema and tenderness to the skin. Findings suggestive of possible cellulitis. No open wounds sores or purulent drainage seen. GENERAL SKIN EXAM: dry skin Course Vital Signs: Vital signs: Vital Signs Temperature 98.7 F 02/11/21 20:21 Pulse Rate 88 02/11/21 22:29 Respiratory Rate 18 02/11/21 22:29 Blood Pressure 153/92 02/11/21 22:29 Pulse Oximetry 95 02/11/21 22:29 MDM - Extremity (Nontraumatic) MDM Narrative: Medical decision making narrative: Patient is a 70-year-old male comes to the ED with right knee pain and left ankle pain and swelling. Patient was seen with here in the ED for his right knee pain back on January 23. He was diagnosed with a possible meniscus tear and referred to Dr. Tripp. Patient has already seen Dr. Tripp and is in the process of getting set up for a CT with contrast of right knee. Patient's left ankle started hurting after he used his walker and was weightbearing on it for a day. He denies any acute trauma or injury to cause pain. He does have a past history of a left ankle fracture and has screws and plates still in left ankle. Exam findings of the left ankle remarkable for some erythema, warmth and tenderness of the medial aspect of left ankle. Findings were suggestive of possible developing cellulitis. Patient's right knee. To have some swelling and was tender upon palpation. He is neurovascular intact distally. CBC and CMP were unremarkable. X-ray of left ankle showed no acute fractures or findings and hardware in left ankle still normal and intact. Ultrasound venous duplex of left lower extremity showed no DVTs or blood clots. I talked with Dr. Knight about getting a CT of patient's right knee here in the ED now even though patient is being set up for 1 on an outpatient basis with Dr. Tripp. Since the ED was not busy at the time Dr. Mcconnell improved weight ordering CT of right knee with contrast for patient. CT was done report was pending. Patient was discharged and told to contact Dr. Tripp tomorrow and let him know that right knee CT with contrast has been performed and report available. Patient was discharged home and diagnosed with cellulitis and right knee pain. Patient was given a dose of cephalexin while here in the ED and discharged home with a prescription for cephalexin. Return to ED precautions given. Patient understood agree with plan. Lab Data: Attestation: I reviewed the patient's lab results. Labs: Lab Results 02/11/21 02/11/21 Range/Units 21:20 21:20 WBC 11.3 H (4.0-10.0) 10^3/ uL RBC 4.05 L (4.1-5.3) 10^6/u L Hgb 12.4 (11.7-16.6) g/dL Hct 39.2 L (42.0-52.0) % MCV 96.8 H (80-94) fL MCH 30.6 (28.0-34.0) pg MCHC 31.6 (30.0-36.0) g/dL RDW 12.9 (12.1-15.1) % Plt Count 327 (130-400) 10^3/c mm MPV 8.9 (7.4-10.4) fL Neut % (Auto) 75.2 % Lymph % (Auto) 13.8 % [place] % (Auto) 9.7 % Eos % (Auto) 0.6 % Baso % (Auto) 0.4 % Neut # (Auto) 8.49 H (1.8-7.7) 10^3/u L Lymph # (Auto) 1.6 (0.8-4.8) 10^3/u L [place] # (Auto) 1.1 H (0.2-0.9) 10^3/u L Eos # (Auto) 0.1 (0.0-0.8) 10^3/u L Baso # (Auto) 0.0 (0.0-0.1) 10^3/u L Nucleated RBC % (a uto) 0 % Nucleated RBCs # 0.0 /100WBC Sodium 138 (136-145) mmol/L Potassium 4.4 (3.5-5.1) mmol/L Chloride 99 (98-107) mmol/L Carbon Dioxide 26 (22-29) mmol/L Anion Gap 17.4 (5-19) BUN 18 (8-23) mg/dL Creatinine 0.8 (0.7-1.2) mg/dL GFR Calculation 95.8 (90-130) mL/min Glucose 113 (65-115) mg/dL Calculated Osmolal ity 289 (285-295) mOsm/k g Calcium 9.3 (8.5-10.5) mg/dL Total Bilirubin 0.3 (0.15-1.2) mg/dL AST 18 (0-40) U/L ALT 15 (0-41) U/L Alkaline Phosphata se 136 H (40-130) IU/L Total Protein 8.1 (6.6-8.7) g/dL Albumin 4.0 (3.5-5.2) g/dL Globulin 4.1 (1.3-4.6) g/dL Imaging Data^: Xray Ortho: Attestation: I personally reviewed and interpreted this imaging study as follows: Radiologist's impression: [address] [place] [address] XRay Report Signed Patient: Zach Fleming Unit #: [id number] : 1950 Age/Sex: 70 / M ADM Date: 02/11/21 Loc: ER Room/Bed: Attending Dr: Ordering Provider/Ordering MD: Carter Knight MD Date of Service: 02/11/21 Procedure(s): XR ankle LT min 3V* [id number] Accession Number(s): [id number] Report Number: [id number] PROCEDURE INFORMATION: Exam: XR Left Ankle Exam date and time: 02/11/2021 7:47 PM Age: 70 years old Clinical indication: Prior surgery; Patient HX: Pain and swelling in left ankle. PT injured his right leg and has been using a walker putting more pressure on left ankle. ; Additional info: Injury TECHNIQUE: Imaging protocol: XR Left ankle. Views: 3 or more views. COMPARISON: No relevant prior studies available. FINDINGS: Bones/joints: Hardware in the distal left fibula transverses an old healed fracture. Curvilinear bandlike regions of sclerosis are present within the distal metaphysis of the tibia. Severe degenerative changes of the left ankle joint. No acute fracture identified. Soft tissues: Mild soft tissue swelling of the ankle. XR/XR ankle LT min 3V* [id number] IMPRESSION: 1. No acute finding. 2. Bandlike regions of sclerosis in the distal left tibia could relate to prior infection or bone infarction. Dictated By: Denis Hopson Signed By: Denis Hopson Signed Date/Time: 02/11/212101 DD/ 99 Vascular: Attestation: I personally reviewed and interpreted this imaging study as follows: Radiologist's impression: Ultrasound venous duplex of left lower extremity?prelim report?no DVTs or blood clots seen. Discharge Plan Discharge Patient Disposition: Home Clinical Impression: Cellulitis Qualifiers: Site of cellulitis: extremity Site of cellulitis of extremity: lower extremity Laterality: left Qualified Code(s): L03.116 - Cellulitis of left lower limb Knee pain, right Qualifiers: Chronicity: acute Qualified Code(s): M25.561 - Pain in right knee Condition: Stable Prescriptions: New cephalexin 500 mg capsule 500 mg PO Q6H 7 Days Qty: 28 RF: 0 No Action lamotrigine 150 mg tablet 150 mg PO BID Qty: 180 RF: 3 budesonide-formoterol [Symbicort] 80-4.5 mcg/actuation HFA aerosol inhaler 2 puff inhalation BID RF: 0 chromium picolinate 1,000 mcg tablet 500 mcg PO QDAY RF: 0 pantoprazole 40 mg tablet,delayed release (DR/EC) 40 mg PO QDAY RF: 0 inositol 500 mg tablet 500 mg PO QDAY RF: 0 multivitamin [Daily Multi-Vitamin] Tablet 1 tab PO QAM RF: 0 pravastatin 80 mg tablet 80 mg PO .at bedtime RF: 0 glutathione 50 mg capsule 500 mg PO .am RF: 0 carbamazepine [Tegretol XR] 200 mg tablet extended release 12 hr 200 mg PO BID Qty: 180 RF: 1 trihexyphenidyl 2 mg tablet 2 mg PO BID Qty: 60 RF: 4 ropinirole 4 mg tablet 4 mg PO QDAY Qty: 30 RF: 3 methylprednisolone [Medrol (Heraclio)] 4 mg tablets,dose pack See Rx Instructions .ROUTE .COMPLEX Qty: 21 RF: 0 zinc 50 mg Tablet See Rx Instructions .ROUTE .COMPLEX RF: 0 Vitamin D3 50 mcg PO BID RF: 0 codeine-guaifenesin 10-100 mg/5 mL liquid 5 ml PO Q6H PRN (Reason: Cough) RF: 0 Kelp (iodine) 150 mcg Tablet 200 mcg PO DAILY RF: 0 magnesium citrate 100 mg Tablet 420 mg PO DAILY RF: 0 coenzyme Q10 [Co Q-10] 100 mg Capsule 120 mg PO DAILY RF: 0 red yeast rice 600 mg Tablet 600 mg PO BID RF: 0 krill oil 500 mg Capsule 200 mg PO DAILY RF: 0 Discharge Orders: Discharge ED (Routine); Ordered 02/11/21 Ordered By: Femi Julien Referrals: Juju Sam MD [Primary Care Provider] - Discharge Diet: Regular Discharge Activity: Use walker/crutches as instructed Patient Instructions: Cellulitis (ED), Knee Pain (ED) Activity Restrictions/Additional Instructions: Follow-up with medical provider as directed in 7 to 10 days for reevaluation. Contact Dr. Tripp to let them know that CT of the knee is complete. Take medications as prescribed. Return to the ER or your medical provider if condition worsens. Please read and understand discharge instructions. Thank you for choosing [facility] for your healthcare needs today. Please realize this is an emergency room and that we are providing you with a medical screening exam and this may not be complete and all inclusive of all the testing and or work up that you may need to determine your ailment or severity of your illness. It is very important that you follow up as instructed or that you return to the Emergency Department should you have concerns or if your condition changes or worsens in any way. Coding Level of Care Code ED [employer] Super[employer] for Rosa M Lewis Exam Comprehensive
[2021-02-11 21:27] LABS: Basophils % 0.4 %; Eosinophils # 0.1 10^3/uL (0.0-0.8); Eosinophils % 0.6 %; Hematocrit 39.2 % (42.0-52.0); Hemoglobin 12.4 g/dL (11.7-16.6); Lymphocytes # 1.6 10^3/uL (0.8-4.8); Lymphocytes % 13.8 %; Mean Corpuscular HGB Conc 31.6 g/dL (30.0-36.0); Mean Corpuscular Hemoglobin 30.6 pg (28.0-34.0); Mean Corpuscular Volume 96.8 fL (80-94); Mean Platelet Volume 8.9 fL (7.4-10.4); Monocytes # 1.1 10^3/uL (0.2-0.9); Monocytes % 9.7 %; Neutrophils # 8.49 10^3/uL (1.8-7.7); Neutrophils % 75.2 %; Nucleated Red Blood Cells % 0 %; Platelet Count 327 10^3/cmm (130-400); Red Blood Count 4.05 10^6/uL (4.1-5.3); Red Cell Distribution Width 12.9 % (12.1-15.1); White Blood Count 11.3 10^3/uL (4.0-10.0)
[2021-02-11 21:46] LABS: Alanine Aminotransferase 15 U/L (0-41); Alkaline Phosphatase 136 IU/L (40-130); Anion Gap 17.4 (5-19); Aspartate Amino Transferase 18 U/L (0-40); Blood Urea Nitrogen 18 mg/dL (8-23); Calcium 9.3 mg/dL (8.5-10.5); Carbon Dioxide 26 mmol/L (22-29); Chloride 99 mmol/L (98-107); Globulin 4.1 g/dL (1.3-4.6); Glomerular Filtration Rate 95.8 mL/min (90-130); Glucose 113 mg/dL (65-115); Osmolality Calculated 289 mOsm/kg (285-295); Potassium 4.4 mmol/L (3.5-5.1); Sodium 138 mmol/L (136-145); Total Bilirubin 0.3 mg/dL (0.15-1.2); Total Protein 8.1 g/dL (6.6-8.7)
[2021-02-11] MEDS: iohexol 300 mg/mL 100 mL Btl IV (22:03)
[2021-02-11 22:29] VITALS: BP 153/92; PULSE 88; RESP 18; O2SAT 95
[2021-02-11] MEDS: cephALEXin 500 mg Capsule PO (22:43)
== END 2021-02-11 22:55 | disposition home or self-care (01) ==
PROVIDERS: Emergency Provider Physician Assistant; PCP Family Medicine
DX: L03.116 Cellulitis of left lower limb (principal); M25.561 Pain in right knee; Z87.891 Personal history of nicotine dependence; M79.605 Pain in left leg
CPT/HCPCS: 73610; 73701; 80053; 85025; 93971; 99283; Q9967

== ENCOUNTER 2021-03-04 12:59 | Outpatient (CLI) | payer OTHER, MEDICARE, SELFPAY ==
--- NOTE | 2021-03-04 13:22 | IR_ITS ---
WS: [id number] RIGHT KNEE ARTHROGRAM (FLUOROSCOPY) RIGHT arthrogram was performed in fluoroscopy prior to CT evaluation. HISTORY: M17.10 - Unilateral primary osteoarthritis, unspecified knee COMPARISON: CT 02/11/2021 Procedure, risks and complications were explained to the patient. Complications include but not limit ed to bleeding, infection and contrast reaction. Current medications are reviewed. Skin is cleansed with ChloraPrep. Skin is anesthetized with 1% buffered lidocaine. 22-gauge needle is inserted into the medial patellofemoral joint space. Approximately 40 cc of Omnipaque 300/saline mix ture injected without complication. Patient will proceed to CT evaluation immediately. No complications were encountered. Patient is instructed to watch for post procedure infection or ble eding. Patient is also instructed to contact the radiology department with any concerns. Medial and lateral compartment chondrocalcinosis. IR/[place] [id number] IMPRESSION: Uncomplicated RIGHT knee joint injection prior to CT arthrogram.
--- NOTE | 2021-03-04 14:00 | CT_ITS ---
WS: [id number] CT RIGHT KNEE ARTHROGRAM HISTORY: M17.10 - Unilateral primary osteoarthritis, unspecified knee DLP: 998.[address] scans at [facility] use at least one of these dose optimization techniques: automat ed exposure control; mA and/or kV adjustment per patient size (includes targeted exams where dose is matched to clinical indication); or iterative reconstruction. COMPARISON: 02/11/2021 Intra-articular and extra-articular contrast within the knee. Moderate narrowing of the medial and la teral compartments. There are numerous small calcific densities consistent with chondrocalcinosis whi ch was seen on the prior noncontrast examination of the knee. Patellofemoral joint space. Moderate narrowing of the lateral patellofemoral joint space. Loss of car tilage along the lateral patellar eminence. Lateral compartment. Chondrocalcinosis. Blunting of the free edge of the posterior horn and small deanne unt of contrast entering the posterior meniscus. There is also mild fraying along the anterior surfac e of the anterior horn. Medial compartment. Mild narrowing of the medial compartment. There is chondrocalcinosis. The ACL and PCL appear to be intact. CT/CT knee RT w con [id number] IMPRESSION: 1. Uncomplicated RIGHT knee arthrogram. 2. Multiple small fissures and defects in the posterior horn of the lateral me niscus. There is a horizontal tear with additional surface fraying. 3. Small caliber anterior and posterior horns of the medial meniscus with blun ting of the free edge of the posterior horn suspicious but indeterminate for ho rizontal tear in the posterior horn. 4. Moderate lateral patellofemoral joint space narrowing with mild chondromala wes.
[2021-03-04] MEDS: iohexol 300 mg/mL 50 mL Btl IV (14:17)
== END 2021-03-04 13:00 | disposition home or self-care (01) ==
LOC: RAD 13:02
PROVIDERS: PCP Family Medicine; Visit Provider Orthopaedic Surgery
DX: M17.10 Unilateral primary osteoarthritis, unspecified knee (principal); S83.281A Other tear of lateral meniscus, current injury, right knee, initial encounter; X58.XXXA Exposure to other specified factors, initial encounter
CPT/HCPCS: 27369; 73701; 77002

== ENCOUNTER → 2021-05-19 13:55 | Outpatient (BNVA) | payer OTHER, SELFPAY | PROVIDERS: PCP Family Medicine; Visit Provider Specialist | DX: Q28.2 Arteriovenous malformation of cerebral vessels (principal); G40.209 Localization-related (focal) (partial) symptomatic epilepsy and epileptic syndromes with complex partial seizures, not intractable, without status epilepticus; G24.9 Dystonia, unspecified; G81.11 Spastic hemiplegia affecting right dominant side; G44.81 Hypnic headache; Z96.82 Presence of neurostimulator | CPT/HCPCS: 95970; 99214 ==

== ENCOUNTER 2021-05-24 06:00 | Outpatient (RCR) | payer OTHER, SELFPAY | END 2021-05-25 23:59 | disposition home or self-care (01) | LOC: SST 06:00 | PROVIDERS: PCP Family Medicine; Referring Provider Family Medicine; Visit Provider Family Medicine | DX: R13.10 Dysphagia, unspecified (principal) | CPT/HCPCS: 92526; 92610 ==

== ENCOUNTER 2021-05-26 06:00 | Outpatient (RCR) | payer OTHER, SELFPAY | END 2021-06-24 23:59 | disposition home or self-care (01) | LOC: SST 06:00 | PROVIDERS: PCP Family Medicine; Referring Provider Family Medicine; Visit Provider Family Medicine | DX: R13.10 Dysphagia, unspecified (principal) | CPT/HCPCS: 92526 ==

== ENCOUNTER → 2021-07-08 14:10 | Outpatient (BNVA) | payer OTHER, SELFPAY | PROVIDERS: PCP Family Medicine; Visit Provider Specialist | DX: G81.11 Spastic hemiplegia affecting right dominant side (principal); G24.8 Other dystonia; G40.209 Localization-related (focal) (partial) symptomatic epilepsy and epileptic syndromes with complex partial seizures, not intractable, without status epilepticus; Q28.2 Arteriovenous malformation of cerebral vessels; Z96.82 Presence of neurostimulator; Z87.891 Personal history of nicotine dependence | CPT/HCPCS: 64644; 95971; 99214; J0585 ==

== ENCOUNTER 2021-08-18 17:01 | Emergency (ER) | payer OTHER, MEDICARE, SELFPAY ==
[2021-08-18 17:25] VITALS: BP 169/77; PULSE 65; RESP 16; TEMP 36.9; O2SAT 98
--- NOTE | 2021-08-18 17:53 | ED_ITS ---
HPI - Extremity Problem General: Chief complaint: Extremity Injury, Upper Stated complaint: Pain in Right Arm from elbow down Time Seen by Provider: 08/18/21 17:31 History of Present Illness: HPI Narrative: Patient is a 71-year-old male comes to the ED with right elbow pain and right arm swelling. Patient says approximately 3 weeks ago he was walking and fell down his steps and hit his right elbow on the steps. Denies any head trauma or loss of consciousness. He has had pain and swelling in right elbow, forearm and hand ever since. Patient says he did go to the [facility] after fall and they did an x-ray he believes on his forearm and they said it was clear and there were not any fractures. He still continued having pain and swelling in his right elbow and arm. All of his pain is located right over the olecranon of his right elbow. Associated symptoms: Deny chest pain, fever(s) or rash Review of Systems Const: Denies: fever(s), chills or fatigue Eyes: Denies: change in vision or eye discomfort ENMT: Denies: throat pain, odynophagia, nasal discharge or nasal congestion Card: Denies: chest pain, palpitations, edema, swelling of feet/ankles, dyspnea on exertion or orthopnea Resp: Denies: dyspnea, productive cough or non-productive cough GI: Denies: abdominal pain, nausea, vomiting, diarrhea, constipation or hematochezia : Denies: flank pain, difficulty urinating, dysuria or hematuria Musc: Reports: extremity pain (right elbow) and extremity swelling (right elbow, forearm, hand); Denies: neck pain or back pain Skin/Breast: Denies: rash or new lesions Neuro: Denies: headache(s), numbness in extremities or weakness in extremities [facility] ED PFSH: Medical History Arteriovenous malformation, brain Chronic back pain greater than 3 months duration Chronic cough Cough syncope Dysarthria Esophageal varices Left carpal tunnel syndrome 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 Restless legs Seizures Unsteady gait Surgical History Postoperative state Family History Other No pertinent family history Denies family history of Diabetes CAD (coronary artery disease) Hypertension Stroke Social History Quit status (tobacco): has quit using tobacco Year quit tobacco: 1996 Former quit date comment: 0.25 PPD x 2 Years Second hand smoke exposure: No Smoking risk assessment/counseling performed?: Yes Alcohol intake: current Alcohol intake frequency: few times a month Alcohol type: wine Counseling given: No Caregiver/support person: Yes Lives independently: Yes Household members: spouse Marital status: service: Yes Current occupational status: disabled Pets and animals: Yes History of recent travel: No Current gender identity: Male Physical Exam Const: COMMON NORMALS: no acute distress, patient oriented x3 and alert GENERAL APPEARANCE: cooperative and comfortable HENMT: COMMON NORMALS: normocephalic HEAD & SCALP: normocephalic MOUTH: Normal oral and palatal mucosa present THROAT: posterior oropharynx normal and uvula midline Neck/C-Spine: COMMON NORMALS: supple GENERAL: Yes normal visual inspection Resp: COMMON NORMALS: normal respiratory effort, No retractions, No use of accessory muscles and clear to auscultation bilaterally AUSCULTATION: clear to auscultation bilaterally Cardio: COMMON NORMALS: regular rate, regular rhythm, S1 normal heart sound present, S2 normal heart sound present, No gallops present (Cardio), No clicks present (Cardio), No murmurs present (Cardio) and Peripheral pulses 2+ throughout RATE: regular rate RHYTHM: regular rhythm HEART SOUNDS: S1 normal heart sound present and S2 normal heart sound present PERIPHERAL PULSES: Peripheral pulses 2+ throughout GI: COMMON NORMALS: Normal to inspection, nondistended, normoactive bowel sounds present, Soft to palpation, non-tender and no masses PALPATION: Yes Soft to palpation : COMMON NORMALS: Yes no CVA tenderness BLADDER/KIDNEY EXAM: Yes no CVA tenderness Back/Pelvis: COMMON NORMALS: no CVA tenderness Extremity: NARRATIVE EXTREMITY EXAM: Patient has 3+ pitting edema in right hand and distal forearm. GENERAL: Yes normal exam except as noted RIGHT UPPER EXTREMITY: Yes elbow joint (Swelling noted) Right elbow: Yes inspection, Yes palpation (Tenderness over olecranon), Yes ROM (Limited due to pain) and Yes neurovascular exam (Intact) Neuro: COMMON NORMALS: patient oriented x3 and moves all extremities SENSORIUM/ORIENTATION: Yes alert Skin: GENERAL SKIN EXAM: dry skin Course Vital Signs: Vital signs: Vital Signs Temperature 98.4 F 08/18/21 17:25 Pulse Rate 65 08/18/21 17:25 Respiratory Rate 16 08/18/21 17:25 Blood Pressure 169/77 08/18/21 17:25 Pulse Oximetry 98 08/18/21 17:25 MDM - Extremity (Nontraumatic) MDM Narrative: Medical decision making narrative: Patient is a 71-year-old male comes to the ED with right elbow pain and right arm swelling. Patient fell downstairs approximately 3 weeks ago. He was evaluated after injury at the [facility] and x-rays were done and showed no fractures. Vitals stable. Exam shows 3+ pitting edema on right hand and lower right arm. He has some swelling around right elbow with some tenderness over the olecranon. Neurovascular intact distally. X-ray of right elbow and right hand showed no acute fractures or findings. Ultrasound venous duplex of right upper extremity showed no blood clots or DVTs. Patient was diagnosed with a contusion of right elbow and swelling of right knee. Patient was discharged home with some Eliezer wrap and told to wrap arm and hand with it to help with swelling. He was also told to try to ice and elevate arm throughout the day to help with symptoms as well. I discharged patient home with a prescription for a steroid help with some of the swelling. Return to ED precautions given. Follow-up with PCP in 7 to 10 days reevaluation. Patient understood agree with plan. Imaging Data^: Xray Ortho: Attestation: I personally reviewed and interpreted this imaging study as follows: Radiologist's impression: [address] [id number] ReportSigned Patient: Zach Fleming #: [id number]: 1Acct#:[id number]/Sex: 71 / MADM Date: 08/18/21Loc: ERRoom/Bed:Attending Dr: Ordering Provider/Ordering MD: Femi Julien Date of Service: 08/18/21 Procedure(s): XR hand RT min 3V* 19719 Accession Number(s): [id number] Report Number: [id number] PROCEDURE INFORMATION: Exam: XR Right Hand Exam date and time: 08/18/2021 7:57 PM Age: 71 years old Clinical indication: Patient HX: Pain/swelling right hand; Additional info: Pain and swelling in hand TECHNIQUE: Imaging protocol: XR Right hand. Views: 3 or more views. COMPARISON: CR (UP EXM, ) 08/18/2021 6:00 PM FINDINGS: Bones/joints: No radiographic evidence of acute fracture or dislocation. Alignment anatomic. Mild degenerative changes. Soft tissues: And a prominent soft tissue swelling, most pronounced posteriorly. XR/XR hand RT min 3V* [id number] IMPRESSION: No acute osseous abnormality. Radiation Dose CTDIVOL = (mGy): DLP = (mGy-cm) Dictated By:Peterson Ferro MDSigned By:Peterson Ferro MDSigned Date/Time:08/18/212DD/ [address] [id number] ReportSigned Patient: Zach Fleming #: [id number]: 1950cct#:[id number]/Sex: 71 / MADM Date: 08/18/21Loc: ERRoom/Bed:Attending Dr: Ordering Provider/Ordering MD: Femi Julien Date of Service: 08/18/21 Procedure(s): XR elbow RT min 3V* 10986 Accession Number(s): [id number] Report Number: [id number] PROCEDURE INFORMATION: Exam: XR Right Elbow Exam date and time: 08/18/2021 5:53 PM Age: 71 years old Clinical indication: Patient HX: Pain/swelling right elbow/arm, limited rom; Additional info: Fall injury 3 weeks ago-pain and swelling TECHNIQUE: Imaging protocol: XR Right elbow. Views: 3 or more views. COMPARISON: No relevant prior studies available. FINDINGS: Bones/joints: Negative for acute bony abnormality. Soft tissues: Unremarkable XR/XR elbow RT min 3V* [id number] IMPRESSION: No acute findings. Radiation Dose CTDIVOL = (mGy): DLP = (mGy-cm) Dictated By:Petra Martinez By:Petra Martinez Date/Time:08/18/211919DD/ 1758 US: Attestation: I personally reviewed and interpreted this imaging study as follows: Radiologist's impression: Ultrasound venous duplex of right upper extremity?prelim report no DVTs or blood clots seen. Discharge Plan Discharge Patient Disposition: Home Clinical Impression: Swelling of right hand Contusion of right elbow Qualifiers: Encounter type: initial encounter Qualified Code(s): S50.01XA - Contusion of right elbow, initial encounter Condition: Stable Prescriptions: New prednisone 20 mg tablet 20 mg PO BID 5 Days Qty: 10 RF: 0 No Action budesonide-formoterol [Symbicort] 80-4.5 mcg/actuation HFA aerosol inhaler 2 puff inhalation BID RF: 0 chromium picolinate 1,000 mcg tablet 500 mcg PO QDAY RF: 0 pantoprazole 40 mg tablet,delayed release (DR/EC) 40 mg PO QDAY RF: 0 inositol 500 mg tablet 500 mg PO QDAY RF: 0 multivitamin [Daily Multi-Vitamin] Tablet 1 tab PO QAM RF: 0 pravastatin 80 mg tablet 80 mg PO .at bedtime RF: 0 glutathione 50 mg capsule 500 mg PO .am RF: 0 trihexyphenidyl 2 mg tablet 2 mg PO BID Qty: 60 RF: 4 tramadol 50 mg tablet 50 mg PO Q6H PRN (Reason: pain) Qty: 30 RF: 0 lamotrigine 150 mg tablet See Rx Instructions .ROUTE .COMPLEX Qty: 180 RF: 3 carbamazepine [Tegretol XR] 200 mg tablet extended release 12 hr 200 mg PO BID Qty: 180 RF: 1 ropinirole 4 mg tablet 4 mg PO QDAY Qty: 30 RF: 3 methylprednisolone [Medrol (Heraclio)] 4 mg tablets,dose pack See Rx Instructions .ROUTE .COMPLEX Qty: 21 RF: 0 zinc 50 mg Tablet See Rx Instructions .ROUTE .COMPLEX RF: 0 Vitamin D3 50 mcg PO BID RF: 0 codeine-guaifenesin 10-100 mg/5 mL liquid 5 ml PO Q6H PRN (Reason: Cough) RF: 0 Kelp (iodine) 150 mcg Tablet 200 mcg PO DAILY RF: 0 magnesium citrate 100 mg Tablet 420 mg PO DAILY RF: 0 coenzyme Q10 [Co Q-10] 100 mg Capsule 120 mg PO DAILY RF: 0 red yeast rice 600 mg Tablet 600 mg PO BID RF: 0 krill oil 500 mg Capsule 200 mg PO DAILY RF: 0 Discharge Orders: Discharge ED (Routine); Ordered 08/18/21 Ordered By: Femi Julien Referrals: Juju Sam MD [Primary Care Provider] - Discharge Diet: Regular Discharge Activity: Increase activity as tolerated Patient Instructions: Contusion in Adults (ED) Activity Restrictions/Additional Instructions: Follow-up with medical provider as directed in 5 to 7 days for reevaluation. Take medications as prescribed. Wrap right arm and hand and Eliezer wrap to help with swelling. Elevate right arm to help with swelling as well. Apply cold pack on right elbow to help with symptoms. Return to the ER or your medical provider if condition worsens. Please read and understand discharge instructions. Thank you for choosing [facility] for your healthcare needs today. Please realize this is an emergency room and that we are providing you with a medical screening exam and this may not be complete and all inclusive of all the testing and or work up that you may need to determine your ailment or severity of your illness. It is very important that you follow up as instructed or that you return to the Emergency Department should you have concerns or if your condition changes or worsens in any way. Coding Level of Care Code ED Business Analysis Professional for Rosa M Lewis Exam Comprehensive
--- NOTE | 2021-08-18 17:53 | USR_ITS ---
PROCEDURE INFORMATION: Exam: US Duplex Right Upper Extremity Veins, Limited Exam date and time: 08/18/2021 5:53 PM Age: 71 years old Clinical indication: Pain; Arm, lower; Right; Additional info: Pitting edema in forearm and hand TECHNIQUE: Imaging protocol: Real-time Duplex ultrasound of the Right Upper Extremity with 2-D hyde scale, color Doppler flow and spectral waveform analysis with image documentation. Limited exam focused on the right upper extremity veins. COMPARISON: CT knee RT w con [id number] 02/11/2021 9:59 PM FINDINGS: Right deep veins: Unremarkable. Axillary, brachial, radial and ulna veins are patent throughout without thrombus. Normal Doppler waveforms. Normal compressibility and/or augmentation response. Visualized internal jugular and subclavian veins are patent. Right superficial veins: Unremarkable. Visualized cephalic vein patent without thrombus. Soft tissues: Unremarkable. US/[place] [id number] IMPRESSION: No sonographic evidence of deep vein thrombosis. Radiation Dose CTDIVOL = (mGy): DLP = (mGy-cm)
--- NOTE | 2021-08-18 19:57 | XRR_ITS ---
PROCEDURE INFORMATION: Exam: XR Right Hand Exam date and time: 08/18/2021 7:57 PM Age: 71 years old Clinical indication: Patient HX: Pain/swelling right hand; Additional info: Pain and swelling in hand TECHNIQUE: Imaging protocol: XR Right hand. Views: 3 or more views. COMPARISON: CR (UP EX, ) 08/18/2021 6:00 PM FINDINGS: Bones/joints: No radiographic evidence of acute fracture or dislocation. Alignment anatomic. Mild degenerative changes. Soft tissues: And a prominent soft tissue swelling, most pronounced posteriorly. XR/XR hand RT min 3V* [id number] IMPRESSION: No acute osseous abnormality. Radiation Dose CTDIVOL = (mGy): DLP = (mGy-cm)
== END 2021-08-18 21:14 | disposition home or self-care (01) ==
PROVIDERS: Emergency Provider Physician Assistant; PCP Family Medicine
DX: M79.89 Other specified soft tissue disorders (principal); S50.01XA Contusion of right elbow, initial encounter; W10.9XXA Fall (on) (from) unspecified stairs and steps, initial encounter; Z87.891 Personal history of nicotine dependence; Z79.891 Long term (current) use of opiate analgesic
CPT/HCPCS: 73080; 73130; 93971; 99283